=== PATIENT | female | born 1985 | race Caucasian/White ===

== ENCOUNTER 2018-05-12 07:09 | Emergency (ER) | payer OTHER, MEDICAID ==
[~2018-05-12] VITALS: Ht 180.3 cm; Wt 61.2 kg
[~2018-05-12 07:09] MED LIST: AMIT10TA6 PO; DIURETIC; HYDR1CAP2; MORP15TA8 PO; NITR100C3 PO; NORE1TAB40; OXYC15TA21 PO; PENT100C5 PO; PRD20T; SOLI5TAB4 PO; TOPI100T; TRAM50TA2 PO; TRIA1CAP PO
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
[2018-05-12] MEDS ORDERED: TETANUS,DIPTH,PERTUSS P/F (BOOSTRIX) 0.5 ML VIAL IM ONE ×2 (07:30→09:59)
[2018-05-12 07:40] LABS: HEMOGLOBIN 14.4 G/DL (11.5-16.0); MEAN PLATELET VOLUME 10.5 FL (7.4-10.4); RED CELL DISTRIBUTION WIDTH 12.8 % (10.0-14.5); WHITE BLOOD COUNT 11.5 10^3/uL (4.3-11.0)
[2018-05-12 08:00] LABS: ALANINE AMINOTRANSFERASE 150 U/L (0-55); ALBUMIN 4.4 GM/DL (3.2-4.5); ALKALINE PHOSPHATASE 64 U/L (40-136); BILIRUBIN,DIRECT 0.1 MG/DL (0.0-0.3); BILIRUBIN,INDIRECT 0.2 MG/DL; BILIRUBIN,TOTAL 0.3 MG/DL (0.1-1.0); BUN/CREATININE RATIO 11; CALCIUM 9.1 MG/DL (8.5-10.1); CARBON DIOXIDE 17 MMOL/L (21-32); CHLORIDE 110 MMOL/L (98-107); CREATININE SERUM 0.89 MG/DL (0.60-1.30); GFR ESTIMATED > 60; GLUCOSE 86 MG/DL (70-105); SODIUM 141 MMOL/L (135-145); TOTAL PROTEIN 7.2 GM/DL (6.4-8.2)
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
[2018-05-12 09:02] LABS: BILIRUBIN,URINE NEGATIVE (NEGATIVE); CLARITY,URINE CLEAR; COLOR,URINE YELLOW; GLUCOSE, URINE (UA) NEGATIVE (NEGATIVE); KETONES,URINE NEGATIVE (NEGATIVE); LEUKOCYTE ESTERASE ,URINE NEGATIVE (NEGATIVE); NITRITE,URINE NEGATIVE (NEGATIVE); PH,URINE 6 (5-9); PROTEIN,URINE 1+ (NEGATIVE); UROBILINOGEN,URINE NORMAL (NORMAL)
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
[2018-05-12 09:11] LABS: AMPHETAMINE SCREEN, URINE NEGATIVE (NEGATIVE); BARBITURATE SCREEN URINE NEGATIVE (NEGATIVE); BENZODIAZEPINES SCREEN URINE NEGATIVE (NEGATIVE); CANNABINOID SCREEN, URINE NEGATIVE (NEGATIVE); COCAINE SCREEN URINE NEGATIVE (NEGATIVE); METHADONE STAT NEGATIVE (NEGATIVE); METHAMPHETAMINE SCREEN URINE S NEGATIVE (NEGATIVE); OPIATE SCREEN URINE NEGATIVE (NEGATIVE); OXYCODONE STAT NEGATIVE (NEGATIVE); PROPOXYPHENE STAT NEGATIVE (NEGATIVE); TRICYCLIC ANTIDEPRESSANTS SCRE NEGATIVE (NEGATIVE)
[2018-05-12 09:22] LABS: BACTERIA,URINE TRACE /HPF; SQUAMOUS EPITHELIAL CELL,UR 0-2 /HPF
[2018-05-12 09:23] LABS: AMORPHOUS SEDIMENT,UR RARE AMOR URATES /LPF
[2018-05-12] MEDS ORDERED: LIDOCAINE 1% INJ 20 ML 20 ML VIAL INJ ONE (10:00)
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
--- NOTE | 2018-05-12 10:50 | ED Trauma-Vehiclar ---
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 previous study was most likely artifactual in nature. However, there is a small 6 MM area of increased density within the white matter of the right parietal lobe near the vertex of the skull. Even in retrospect this was not present on the previous exam. This finding is most likely due to small parenchymal contusion of the brain. No other acute intracranial abnormality is noted. The ventricles are not abnormally dilated. The bone windows show no sign of a fracture. There does appear to be soft tissue edema over the right frontal bone. IMPRESSION: 1. The questionable extra-axial hemorrhage along the right frontal lobe seen on the prior exam appears to have been artifactual in nature. There is no evidence for hemorrhage in the subdural space. 2. There is a small parenchymal contusion in the right parietal lobe near the vertex of the skull. A short-term (24-hour) followup CT head exam would be recommended for further study. 3. These results were discussed with Dr. Bonds at the time this dictation. CRITICAL FINDING. Dictated by: Dictated on workstation # [id number] Dict: 05/12/18 1015 Trans: 05/12/18 1148 Interpreted by: SIERRA MERLOS MD Electronically signed by: SIERRA MERLOS MD 05/12/18 1148 Diagonstic Imaging: Xray Plain Films/CT/US/NM/MRI: knee Comments Right knee x-ray viewed by me and report reviewed. See report below: NAME: MY [facility] REC#: [id number] PT STATUS: REG ER : 1985 PHYSICIAN: MAULIK BONDS MD ADMIT DATE: 05/12/18/ER Draft Date of Exam:05/12/18 KNEE, RIGHT, 3 VIEWS Right knee at 1105. INDICATION: Knee pain. Three views were obtained. There are no prior studies available for comparison. There is a small calcific density along the lateral edge of the articular surface of the proximal tibia on the AP view. This finding cannot be identified with certainty on the other two projections but could related to a small avulsion fracture. There is also slight irregularity of the trabecula of the lateral tibial plateau and there could be a nondisplaced fracture in this region as well. The lateral view reveals that there may be a small amount of lipohemarthrosis. I would recommend that CT of the knee be performed for further evaluation. No other fracture or acute bony abnormality is appreciated. The knee joint itself is fairly well-maintained. IMPRESSION: There is a question of small avulsion fracture along the lateral aspect of the articular surface of the proximal tibia. There may be a nondisplaced fracture of the lateral tibial plateau as well. CT would be recommended for further evaluation. Dictated on workstation # [id number] Dict: 05/12/18 1114 Trans: 05/12/18 1133 [facility] [id number] Interpreted by: SIERRA MERLOS MD Departure Impression Primary Impression: Spleen laceration Qualified Codes: S36.039A - Unspecified laceration of spleen, initial encounter Additional Impressions: Brain contusion Closed right scapular fracture Qualified Codes: S42.111A - Displaced fracture of body of scapula, right shoulder, initial encounter for closed fracture Neck contusion Qualified Codes: S10.93XA - Contusion of unspecified part of neck, initial encounter Multiple lacerations Distal radius fracture, right Qualified Codes: S52.501A - Unspecified fracture of the lower end of right radius, initial encounter for closed fracture Fracture of right tibial plateau Qualified Codes: S82.141A - Displaced bicondylar fracture of right tibia, initial encounter for closed fracture Foreign body of right index finger Alcohol intoxication Qualified Codes: F10.929 - Alcohol use, unspecified with intoxication, unspecified Disposition: 02 XFER SHT-TRM HOSP Condition: Improved Transfer Time Spoke to Accepting Phy: 10:50 Transfer Progress Notes Patient accepted by Dr. Dow at [facility] ER. Update was provided at 12:28. Transfer Time: 12:33 Method of Transfer: EMS Departure-Patient Inst. Referrals: ANNIE ALVARENGA MD (PCP) Primary Care Physician MAULIK BONDS MD May 12, 2018 10:50
--- NOTE | 2018-05-12 11:24 | NUR ---
1500 ML EMPTIED OUT OF TAVERAS.
--- NOTE | 2018-05-12 11:34 | Diagnostic Imaging Report ---
Right knee at 1105. INDICATION: Knee pain. Three views were obtained. There are no prior studies available for comparison. There is a small calcific density along the lateral edge of the articular surface of the proximal tibia on the AP view. This finding cannot be identified with certainty on the other two projections but could related to a small avulsion fracture. There is also slight irregularity of the trabecula of the lateral tibial plateau and there could be a nondisplaced fracture in this region as well. The lateral view reveals that there may be a small amount of lipohemarthrosis. I would recommend that CT of the knee be performed for further evaluation. No other fracture or acute bony abnormality is appreciated. The knee joint itself is fairly well-maintained. IMPRESSION: There is a question of small avulsion fracture along the lateral aspect of the articular surface of the proximal tibia. There may be a nondisplaced fracture of the lateral tibial plateau as well. CT would be recommended for further evaluation. Dictated by: Dictated on workstation # [id number]
[2018-05-12] MEDS ORDERED: fentaNYL INJECTION 100 MCG/2 ML AMP ONE (12:26)
[2018-05-12] MEDS ORDERED: fentaNYL INJECTION 100 MCG/2 ML AMP IVP ONE (12:30)
[2018-05-12 12:33] VITALS: BP 111/62
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
== END 2018-05-12 12:33 | disposition short-term general hospital (02) ==
LOC: EDUNIT# 07:09 → ER 07:10
DX: S06.2X9A Diffuse traumatic brain injury with loss of consciousness of unspecified duration, initial encounter (principal); S36.039A Unspecified laceration of spleen, initial encounter; S42.111A Displaced fracture of body of scapula, right shoulder, initial encounter for closed fracture; S52.501A Unspecified fracture of the lower end of right radius, initial encounter for closed fracture; S82.141A Displaced bicondylar fracture of right tibia, initial encounter for closed fracture; S61.220A Laceration with foreign body of right index finger without damage to nail, initial encounter; S01.511A Laceration without foreign body of lip, initial encounter; S10.93XA Contusion of unspecified part of neck, initial encounter; G43.909 Migraine, unspecified, not intractable, without status migrainosus; R40.2142 Coma scale, eyes open, spontaneous, at arrival to emergency department; R40.2242 Coma scale, best verbal response, confused conversation, at arrival to emergency department; R40.2362 Coma scale, best motor response, obeys commands, at arrival to emergency department; F17.210 Nicotine dependence, cigarettes, uncomplicated; Z90.710 Acquired absence of both cervix and uterus; Z23 Encounter for immunization; Z87.448 Personal history of other diseases of urinary system; Z88.8 Allergy status to other drugs, medicaments and biological substances; V49.40XA Driver injured in collision with unspecified motor vehicles in traffic accident, initial encounter
CPT/HCPCS: 12011; 36415; 51702; 70450; 70486; 70490; 71045; 71260; 72125; 72170; 73130; 73562; 74177; 80048; 80076; 80306; 80320; 81000; 84703; 85027; 86850; 86900; 86901; 86920; 90715; 93041; 99291

== ENCOUNTER 2019-02-03 21:29 | Emergency (ER) | payer OTHER, MEDICAID ==
[2019-02-03] MEDS ORDERED: IBUPROFEN 800 MG (MOTRIN) TAB PO ONE (22:00)
[2019-02-03] MEDS ORDERED: ACETAMINOPHEN 325 MG TABLET PO ONE (22:00)
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
[2019-02-03 22:30] VITALS: BP 129/70
== END 2019-02-03 22:30 ==
LOC: EDUNIT# 21:29 → ER FS 21:29
DX: F10.129 Alcohol abuse with intoxication, unspecified (principal); M25.572 Pain in left ankle and joints of left foot; G43.909 Migraine, unspecified, not intractable, without status migrainosus; Z88.5 Allergy status to narcotic agent; Z88.4 Allergy status to anesthetic agent; Z90.710 Acquired absence of both cervix and uterus
CPT/HCPCS: 99283

== ENCOUNTER → 2019-02-12 | Outpatient (CLI) | payer OTHER, MEDICAID ==
[~2019-02-12] MED LIST changes: +DOXY100C PO; +OXYC-471 PO; +SULF1TAB35 PO
== END | disposition home or self-care (01) ==
LOC: PREOP 11:29
PROVIDERS: ATTEND Orthopaedic Surgery
DX: Z01.818 Encounter for other preprocedural examination (principal)

== ENCOUNTER 2019-02-13 08:34 | Day surgery (SDC) | payer MEDICARE, MEDICAID ==
--- NOTE | 2019-02-12 21:10 | HISTORY AND PHYSICAL ---
DATE OF SERVICE: This will be for outpatient surgery on 02/13/2019 for left ankle irrigation and debridement. HISTORY: The patient is a 33-year-old female who underwent open reduction and internal fixation for left lateral malleolus fracture on 01/15/2019. She was doing well until approximately 02/10/2019 and she began to experience erythema and warmth. She denies any antecedent illnesses. She was started on oral antibiotics, but did not see significant improvement; therefore, presents for planned irrigation and debridement. REVIEW OF SYSTEMS: No chest pain, no shortness of breath, no dysuria. PAST MEDICAL HISTORY: Kidney disease, anxiety, depression. PAST SURGICAL HISTORY: Hysterectomy, shoulder InterStim implant, right knee arthroscopy with ACL reconstruction. FAMILY HISTORY: Noncontributory. PRIMARY CARE PROVIDER: . MEDICATIONS: Clonazepam, folic acid, gabapentin, mirtazapine, Minipress, Trintellix. ALLERGIES: DEMEROL. SOCIAL HISTORY: The patient smokes quarter pack a day. Drinks alcohol occasionally. PHYSICAL EXAMINATION: GENERAL: The patient is well developed, well nourished, in no acute distress. HEENT: Normocephalic, atraumatic. Pupils are equal, round, reactive to light. Oropharynx is clear. NECK: Supple, no lymphadenopathy. LUNGS: Clear to auscultation bilaterally. HEART: Regular rate and rhythm. ABDOMEN: Soft, nontender, nondistended. EXTREMITIES: The left ankle demonstrates erythema about the incision. There is no discharge. Her incision is well healed. There is no effusion noted in the ankle. There is warmth noted. IMPRESSION: Left ankle postoperative infection status post internal fixation of lateral malleolus. PLAN: Irrigation and debridement of left lateral malleolus. The risks, benefits, options, ramifications and recovery were discussed at length with the patient. She understands and wishes to proceed. Job ID: [id number] DocumentID: [id number] Dictated Date: 02/11/2019 15:15:31 Portable Sawmill Operator Date: 02/11/2019 17:19:42 Dictated By: MANUEL CHRISTIANSON MD
[~2019-02-13] VITALS: Ht 180.3 cm; Wt 65.3 kg
[2019-02-13] VITALS (11 sets, daily range): BP systolic 111–131; BP diastolic 70–102
[~2019-02-13 08:34] MED LIST changes: -DOXY100C PO; -OXYC-471 PO; -SULF1TAB35 PO; +oxyCODONE/APAP 5/325MG (PERCOCET 5) TABLET PO PRN
--- NOTE | 2019-02-13 08:50 | Progress Note-Pre Operative ---
Pre-Operative Progress Note H&P Reviewed The H&P was reviewed, patient examined and no changes noted. Date Seen by Provider: Feb 13, 2019 Time Seen by Provider: 08:48 Date H&P Reviewed: Feb 13, 2019 Time H&P Reviewed: 08:48 Pre-Operative Diagnosis: infected left ankle hardware MANUEL CHRISTIANSON MD Feb 13, 2019 08:50 POS
--- NOTE | 2019-02-13 08:51 | Progress Note-Post Operative ---
Post-Operative Progess Note Surgeon (s)/Respiratory Therapy Manager (s) Surgeon MANUEL CHRISTIANSON MD Respiratory Therapy Manager: Lasha Gentile Pre-Operative Diagnosis infected left ankle hardware Post-Operative Diagnosis infected left ankle hardware Procedure & Operative Findings Date of Procedure 02/13/19 Procedure Performed/Findings irrigation and debridement and hardware removal left ankle Anesthesia Type GETA Estimated Blood Loss Estimated blood loss (mL): minimal Specimens/Packing Specimens Removed cultures sent Packing: none MANUEL CHRISTIANSON MD Feb 13, 2019 08:51 POS
[2019-02-13] MEDS ORDERED: LACTATED RINGERS 1,000 ML IV PRN (08:54)
[2019-02-13] MEDS ORDERED: fentaNYL INJECTION 100 MCG/2 ML AMP IV ONE (09:00)
[2019-02-13] MEDS ORDERED: fentaNYL INJECTION 100 MCG/2 ML AMP ONE ×2 (09:03→09:14)
[2019-02-13] MEDS ORDERED: LIDOCAINE PF 2% 5 ML (XYLOCAINE) VIAL ONE (09:13)
[2019-02-13] MEDS ORDERED: proPOfol 200 MG/20 ML (DIPRIVAN) VIAL IV ONE (09:13)
[2019-02-13] MEDS ORDERED: DEXAMETHASONE 10 MG/ML (DECADRON) 1 ML VIAL ONE (09:13)
[2019-02-13] MEDS ORDERED: ONDANSETRON 4 MG/2 ML (SDV) Z0FRAN ONE (09:13)
[2019-02-13] MEDS ORDERED: MIDAZOLAM 2 MG/2 ML (VERSED) VIAL ONE (09:14)
[2019-02-13] MEDS ORDERED: BUPIVACAINE 0.25% 30 ML (SENSORCAINE) VIAL ONE (09:15)
[2019-02-13] MEDS ORDERED: SEVOFLURANE (ULTANE) 15 ML INHAL SOLN ONE ×3 (09:17→10:37)
[2019-02-13] MEDS ORDERED: fentaNYL INJECTION 100 MCG/2 ML AMP IVP ONE (09:30)
[2019-02-13] MEDS ORDERED: ONDANSETRON 4 MG/2 ML (SDV) Z0FRAN IVP PRN (09:30)
[2019-02-13] MEDS ORDERED: morphine INJ 10 MG/ML 1ML (SYR OR VIAL) IVP ONE (09:30)
--- NOTE | 2019-02-13 10:50 | Diagnostic Imaging Report ---
EXAMINATION: Fluoroscopy at 0959 hours. INDICATION: Hardware removal. TECHNIQUE: Fluoroscopic assistance was provided for Dr. Garcia during his hardware removal procedure. 4.4 seconds of fluoroscopy time was utilized. Three AP spot films of the ankle were obtained. COMPARISON: There are no prior studies available for comparison. FINDINGS: The spot films show a small calcific density along the inferior margin of the medial malleolus. There is no fracture or acute bony abnormality identified. There is no orthopedic hardware evident. There is soft tissue edema about the ankle joint. IMPRESSION: Fluoroscopic assistance was provided for Dr. Garcia. Dictated by: Dictated on workstation # [id number]
[2019-02-13] MEDS ORDERED: OXYC-471 PO (12:11)
[2019-02-13] MEDS ORDERED: DOXY100C PO (12:11)
[2019-02-13] MEDS ORDERED: SULF1TAB35 PO (12:11)
--- NOTE | 2019-02-13 12:52 | Anesthesia-General Post-Op ---
General Patient Condition Mental Status/LOC: Same as Preop Cardiovascular: Satisfactory Nausea/Vomiting: Absent Respiratory: Satisfactory Pain: Controlled Complications: Absent Post Op Complications Complications None Follow Up Care/Instructions Patient Instructions None needed. Anesthesia/Patient Condition Patient Condition Patient is doing well, no complaints, stable vital signs, no apparent adverse anesthesia problems. No complications reported per nursing. LISA PIERRE CRNA Feb 13, 2019 12:52 POS
--- NOTE | 2019-02-13 15:35 | OPERATIVE REPORT ---
DATE OF SERVICE: 02/13/2019 PREOPERATIVE DIAGNOSIS: Infected left ankle hardware. POSTOPERATIVE DIAGNOSIS: Infected left ankle hardware. PROCEDURES: Irrigation and debridement and hardware removal, left ankle. SURGEON: Marvin Christianson MD PRODUCT SAFETY ASSOCIATE: Lasha Gentile, who assisted throughout the procedure and closed the incision. ANESTHESIA: General endotracheal by Lasha Diop CRNA. TOURNIQUET TIME: Approximately 30 minutes at 300 mmHg. ESTIMATED BLOOD LOSS: Minimal. DRAINS: None. COMPLICATIONS: None. POSTOPERATIVE PLAN: Boot ambulation for 4 weeks. The patient was transferred to the recovery room awake and stable condition. STATEMENT OF MEDICAL NECESSITY: The patient is a 33-year-old female, who approximately five weeks ago underwent internal fixation of her lateral malleolus fracture. She presented to the clinic early this week with erythema, which did not improve with oral antibiotics. Therefore, it was recommended the patient undergo operative irrigation and debridement. DESCRIPTION OF PROCEDURE: After risks and benefits of the procedure were discussed and questions were answered, an informed consent was signed and placed on the chart, the operative site was confirmed in the preoperative holding area initialed by the surgeon, the patient was then transferred to the operating room and after adequate levels of general endotracheal anesthetic were obtained, a timeout was called, confirming the operative site. Left lower extremity was prepped and draped in the usual sterile fashion. With the leg elevated, tourniquet was inflated to 300 mmHg. The previous incision was utilized. The underlying soft tissues were carefully dissected. Cultures were obtained and sent; two sets were obtained, one from the deep distal tissues and one from the more superficial tissues. There was some purulence noted inferiorly. This did appear to extend into the peroneal tendons with the peroneal tendons themselves were intact with no evidence of necrotic tissue. There was marked fibrotic tissue over the plate, which was resected sharply. No necrotic tissue was noted. The fracture was found to be well healed both under direct visualization and under fluoroscopic visualization. The plate and screws were removed without difficulty. Under fluoroscopic visualization, the ankle was stressed and the fracture was well healed and stable. After sharply dissecting the fibrotic tissue, the wound was irrigated with 6 liters of pulse lavage and 3-0 Vicryl was then used to reapproximate the subcutaneous tissue and the skin was closed with 3-0 nylon in a vertical mattress interrupted fashion. Incision was infiltrated with plain Marcaine. A soft dressing and boot were applied. The tourniquet was deflated after wound closure and the patient was transferred to the recovery room awake and in stable condition. Job ID: [id number] DocumentID: [id number] Dictated Date: 02/13/2019 10:31:08 Design Printer Balloon Date: 02/13/2019 15:35:35 Dictated By: MARVIN CHRISTIANSON MD
== END 2019-02-13 12:40 | disposition home or self-care (01) ==
LOC: SDC 08:34
PROVIDERS: ATTEND Orthopaedic Surgery
DX: T84.098A Other mechanical complication of other internal joint prosthesis, initial encounter (principal); F32.9 Major depressive disorder, single episode, unspecified; F41.9 Anxiety disorder, unspecified; F17.210 Nicotine dependence, cigarettes, uncomplicated; Z90.710 Acquired absence of both cervix and uterus; Z79.899 Other long term (current) drug therapy
CPT/HCPCS: 87070; 87075; 87077; 87081; 87186; 87205

== ENCOUNTER → 2019-03-06 | Outpatient (CLI) | payer MEDICARE, MEDICAID ==
[~2019-03-06] MED LIST changes: +DOXY100C PO; +OXYC-471 PO; +SULF1TAB35 PO; -oxyCODONE/APAP 5/325MG (PERCOCET 5) TABLET PO PRN
== END ==
LOC: WOUNDCARE 13:47
PROVIDERS: ATTEND Surgery
DX: I96 Gangrene, not elsewhere classified (principal); S91.002A Unspecified open wound, left ankle, initial encounter; L97.322 Non-pressure chronic ulcer of left ankle with fat layer exposed; L03.116 Cellulitis of left lower limb
CPT/HCPCS: 11042

== ENCOUNTER → 2019-03-06 | Outpatient (CLI) | payer MEDICARE, MEDICAID ==
[2019-03-06 15:58] LABS: BASOPHILS % (AUTO) 1 % (0-10); EOSINOPHILS # (AUTO) 0.3 10^3/uL (0.0-0.3); EOSINOPHILS % (AUTO) 5 % (0-10); HEMATOCRIT 38 % (35-52); HEMOGLOBIN 12.5 G/DL (11.5-16.0); LYMPHOCYTES # (AUTO) 2.5 X 10^3 (1.0-4.0); LYMPHOCYTES % (AUTO) 36 % (12-44); MEAN CORPUSCULAR HEMOGLOBIN 32 PG (25-34); MEAN CORPUSCULAR HGB CONC 33 G/DL (32-36); MEAN CORPUSCULAR VOLUME 98 FL (80-99); MEAN PLATELET VOLUME 9.8 FL (7.4-10.4); MONOCYTES # (AUTO) 0.5 X 10^3 (0.0-1.0); MONOCYTES % (AUTO) 8 % (0-12); NEUTROPHILS # (AUTO) 3.5 X 10^3 (1.8-7.8); NEUTROPHILS % (AUTO) 51 % (42-75); PLATELET COUNT 326 10^3/uL (130-400); RED CELL DISTRIBUTION WIDTH 12.9 % (10.0-14.5); WHITE BLOOD COUNT 6.9 10^3/uL (4.3-11.0)
[2019-03-06 16:36] LABS: ALANINE AMINOTRANSFERASE 18 U/L (0-55); ALBUMIN 4.1 GM/DL (3.2-4.5); ALKALINE PHOSPHATASE 95 U/L (40-136); BILIRUBIN,TOTAL 0.3 MG/DL (0.1-1.0); BUN/CREATININE RATIO 13; CALCIUM 9.6 MG/DL (8.5-10.1); CARBON DIOXIDE 26 MMOL/L (21-32); CHLORIDE 105 MMOL/L (98-107); CREATININE SERUM 0.86 MG/DL (0.60-1.30); GFR ESTIMATED > 60; GLUCOSE 84 MG/DL (70-105); POTASSIUM 4.5 MMOL/L (3.6-5.0); SODIUM 139 MMOL/L (135-145); TOTAL PROTEIN 7.7 GM/DL (6.4-8.2)
== END ==
LOC: LAB 15:35
PROVIDERS: ATTEND Surgery
DX: S91.002A Unspecified open wound, left ankle, initial encounter (principal); L97.322 Non-pressure chronic ulcer of left ankle with fat layer exposed; L03.116 Cellulitis of left lower limb
CPT/HCPCS: 36415; 80053; 85025

== ENCOUNTER → 2019-03-15 | Outpatient (CLI) | payer MEDICARE, MEDICAID | LOC: WOUNDCARE 08:14 | PROVIDERS: ATTEND Surgery | DX: L97.322 Non-pressure chronic ulcer of left ankle with fat layer exposed (principal); S91.002A Unspecified open wound, left ankle, initial encounter; L03.116 Cellulitis of left lower limb | CPT/HCPCS: 11042 ==

== ENCOUNTER → 2019-03-22 | Outpatient (CLI) | payer MEDICARE, MEDICAID | LOC: WOUNDCARE 08:19 | PROVIDERS: ATTEND Surgery | DX: S91.002A Unspecified open wound, left ankle, initial encounter (principal); L97.322 Non-pressure chronic ulcer of left ankle with fat layer exposed; L03.114 Cellulitis of left upper limb; I96 Gangrene, not elsewhere classified | CPT/HCPCS: 11042 ==

== ENCOUNTER → 2019-03-27 | Outpatient (CLI) | payer MEDICARE, MEDICAID | LOC: WOUNDCARE 10:57 | PROVIDERS: ATTEND Orthopaedic Surgery Hand Surgery | DX: S91.002A Unspecified open wound, left ankle, initial encounter (principal); L97.322 Non-pressure chronic ulcer of left ankle with fat layer exposed; L03.116 Cellulitis of left lower limb; I96 Gangrene, not elsewhere classified | CPT/HCPCS: 11042 ==

== ENCOUNTER 2019-04-03 02:07 | Emergency (ER) | payer MEDICARE, MEDICAID ==
[~2019-04-03] VITALS: Ht 180 cm; Wt 63.6 kg
[~2019-04-03 02:07] MED LIST changes: -DOXY100T2 PO
[2019-04-03 02:44] LABS: BASOPHILS % (AUTO) 0 % (0-10); EOSINOPHILS # (AUTO) 0.4 10^3/uL (0.0-0.3); EOSINOPHILS % (AUTO) 3 % (0-10); HEMATOCRIT 39 % (35-52); LYMPHOCYTES # (AUTO) 1.6 X 10^3 (1.0-4.0); LYMPHOCYTES % (AUTO) 15 % (12-44); MEAN CORPUSCULAR HEMOGLOBIN 32 PG (25-34); MEAN CORPUSCULAR HGB CONC 33 G/DL (32-36); MEAN CORPUSCULAR VOLUME 97 FL (80-99); MEAN PLATELET VOLUME 10.1 FL (7.4-10.4); MONOCYTES # (AUTO) 0.8 X 10^3 (0.0-1.0); MONOCYTES % (AUTO) 7 % (0-12); NEUTROPHILS # (AUTO) 8.4 X 10^3 (1.8-7.8); NEUTROPHILS % (AUTO) 75 % (42-75); PLATELET COUNT 293 10^3/uL (130-400); RED CELL DISTRIBUTION WIDTH 13.8 % (10.0-14.5); WHITE BLOOD COUNT 11.2 10^3/uL (4.3-11.0)
[2019-04-03 02:55] LABS: INR 0.9 (0.8-1.4); PROTHROMBIN TIME PATIENT 12.5 SEC (12.2-14.7)
[2019-04-03 03:04] LABS: ALBUMIN 4.2 GM/DL (3.2-4.5); BILIRUBIN,TOTAL 0.2 MG/DL (0.1-1.0); CALCIUM 9.3 MG/DL (8.5-10.1); CREATININE SERUM 1.04 MG/DL (0.60-1.30); POTASSIUM 3.8 MMOL/L (3.6-5.0); TOTAL PROTEIN 7.6 GM/DL (6.4-8.2)
[2019-04-03] MEDS ORDERED: cefTRIAXone FOR IV USE 1,000 MG in WATER (STERILE) FOR INJECTION 10 ML IV ONE (03:15)
[2019-04-03] MEDS ORDERED: KETOROLAC 30 MG/ML VIAL IVP ONE (03:15)
[2019-04-03] MEDS ORDERED: DOXYCYCLINE 100 MG (VIBRAMYCIN) TABLET PO ONE (03:30)
--- NOTE | 2019-04-03 03:38 | ED General ---
General Chief Complaint: Skin/Wound Problems Stated Complaint: LEFT FOOT PAIN Nursing Triage Note: left ankle swelling/redness/pain Nursing Sepsis Screen: No Definite Risk Source of Information: Patient Exam Limitations: No Limitations History of Present Illness Date Seen by Provider: Apr 03, 2019 Time Seen by Provider: 02:15 Initial Comments This 33-year-old woman presents to the emergency room with complaints of pain, swelling, and erythema about the left ankle. She has a history of fracture in that ankle that was repaired and then developed postoperative infection. Patient has an appointment with the wound care clinic later this morning. Dr. Garcia is her orthopedic surgeon. Patient denies any trauma associated with her symptoms. Allergies and Home Medications Allergies Coded Allergies: benzocaine (Unverified Allergy, Unknown, 02/03/19) meperidine (Verified Allergy, Unknown, Pt has received Fentanyl w/o issue, 02/13/19) Home Medications Doxycycline Hyclate 100 Mg Tablet, 100 MG PO BID Prescribed by: MAULIK MANZANARES on 04/03/19 0339 Oxycodone HCl/Acetaminophen 1 Each Tablet, 1 EACH PO Q4H PRN for PAIN-SEVERE Prescribed by: JAVIER STACK on 02/13/19 1211 Sulfamethoxazole/Trimethoprim 1 Each Tablet, 1 EACH PO BID Prescribed by: MAULIK MANZANARES on 04/03/19 0339 Patient Home Medication List Home Medication List Reviewed: Yes Review of Systems Review of Systems Constitutional: no symptoms reported EENTM: no symptoms reported Respiratory: no symptoms reported Cardiovascular: no symptoms reported Gastrointestinal: no symptoms reported Genitourinary: no symptoms reported : No Musculoskeletal: see HPI Skin: see HPI Psychiatric/Neurological: No Symptoms Reported Hematologic/Lymphatic: No Symptoms Reported Past [id number] Hx Past Med/Social Hx: Reviewed Nursing Past Med/Soc Hx Patient Social History Alcohol Use: Rarely Uses Number of Drinks Today: AA Alcohol Beverage of Choice: Beer Recreational Drug Use: No Smoking Status: Current Everyday Smoker Type Used: Cigarettes 2nd Hand Smoke Exposure: Yes Recent Foreign Travel: No Contact w/Someone Who Travel: No Recent Infectious Disease Expo: No Recent Hopitalizations: Yes Physical Abuse: No Sexual Abuse: No Mistreated: No Fear: No Immunizations Up To Date Tetanus Booster (TDap): Less than 5yrs Date of Pneumonia Vaccine: Dec 18, 2012 Date of Influenza Vaccine: Dec 18, 2012 Seasonal Allergies Seasonal Allergies: No Past Medical History Surgeries: Yes (LEFT ANKLE SURGERY; RIGHT KNEE ACL SURGERY) Hysterectomy, Orthopedic Respiratory: No Currently Using CPAP: No Currently Using BIPAP: No Cardiac: No Neurological: Yes Headaches /Migraines : No Reproductive Disorders: Yes (SEVERE CERVICAL DYSPLASIA, HYSTERECTOMY) 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 oz. 61.564691fo; 19.00 BMI Method:Stated General Appearance: No Apparent Distress, WD/WN HEENT: PERRL/EOMI, Normal ENT Inspection Neck: Normal Inspection Respiratory: Lungs Clear, Normal Breath Sounds, No Accessory Muscle Use Cardiovascular: No Edema, No Murmur, Tachycardia Extremity: Other (there is swelling, erythema, heat, and tenderness over the lateral malleolus of the left ankle. Pedal pulses strong. Distal foot is normal. There is scar tissue but no open wound or drainage over the surgical site on the lateral malleolus.) Neurologic/Psychiatric: Alert, Oriented x3, No Motor/Sensory Deficits, Normal Mood/Affect, role player II-XII Norm as Tested Skin: warm/dry (erythema over the left lateral malleolus) Focused Exam Lactate Level 04/03/19 02:35: Lactic Acid Level 1.12 Lactic Acid Level Laboratory Tests Test 04/03/19 02:35 Lactic Acid Level 1.12 MMOL/L (0.50-2.00) Procedures/Interventions Suture Size: 6-0 Progress/Results/Core Measures Suspected Sepsis Recent Fever Within 48 Hours: No Infection Criteria Present: Suspected New Infection New/Unexplained Altered Menta: No Sepsis Screen: No Definite Risk SIRS Temperature: Pulse: 124 Respiratory Rate: 18 Laboratory Tests 04/03/19 02:35: White Blood Count 11.2H Blood Pressure 129 /83 Mean: 98 04/03/19 02:35: Lactic Acid Level 1.12 Laboratory Tests 04/03/19 02:35: Creatinine 1.04, INR Comment 0.9, Platelet Count 293, Total Bilirubin 0.2 Results/Orders Lab Results Laboratory Tests Test 04/03/19 02:35 Range/Units White Blood Count 11.2 H 4.3-11.0 10^3/uL Red Blood Count 4.06 L 4.35-5.85 10^6/uL Hemoglobin 13.0 11.5-16.0 G/DL Hematocrit 39 35-52 % Mean Corpuscular Volume 97 80-99 FL Mean Corpuscular Hemoglobin 32 25-34 PG Mean Corpuscular Hemoglobin Concent 33 32-36 G/DL Red Cell Distribution Width 13.8 10.0-14.5 % Platelet Count 293 130-400 10^3/uL Mean Platelet Volume 10.1 7.4-10.4 FL Neutrophils (%) (Auto) 75 42-75 % Lymphocytes (%) (Auto) 15 12-44 % Monocytes (%) (Auto) 7 0-12 % Eosinophils (%) (Auto) 3 0-10 % Basophils (%) (Auto) 0 0-10 % Neutrophils # (Auto) 8.4 H 1.8-7.8 X 10^3 Lymphocytes # (Auto) 1.6 1.0-4.0 X 10^3 Monocytes # (Auto) 0.8 0.0-1.0 X 10^3 Eosinophils # (Auto) 0.4 H 0.0-0.3 10^3/uL Basophils # (Auto) 0.0 0.0-0.1 10^3/uL Prothrombin Time 12.5 12.2-14.7 SEC INR Comment 0.9 0.8-1.4 Activated Partial Thromboplast Time 28 24-35 SEC Sodium Level 143 135-145 MMOL/L Potassium Level 3.8 3.6-5.0 MMOL/L Chloride Level 111 H 98-107 MMOL/L Carbon Dioxide Level 20 L 21-32 MMOL/L Anion Gap 12 5-14 MMOL/L Blood Urea Nitrogen 11 7-18 MG/DL Creatinine 1.04 0.60-1.30 MG/DL Estimat Glomerular Filtration Rate 60 BUN/Creatinine Ratio 11 Glucose Level 86 70-105 MG/DL Lactic Acid Level 1.12 0.50-2.00 MMOL/L Calcium Level 9.3 8.5-10.1 MG/DL Corrected Calcium 9.1 8.5-10.1 MG/DL Total Bilirubin 0.2 0.1-1.0 MG/DL Aspartate Amino Transf (AST/SGOT) 15 5-34 U/L Alanine Aminotransferase (ALT/SGPT) 18 0-55 U/L Alkaline Phosphatase 84 40-136 U/L C-Reactive Protein High Sensitivity 0.50 0.00-0.50 MG/DL Total Protein 7.6 6.4-8.2 GM/DL Albumin 4.2 3.2-4.5 GM/DL My Orders Orders - MAULIK ZHONG MD Cbc With Automated Diff (04/03/19 02:25) Comprehensive Metabolic Panel (04/03/19 02:25) Blood Culture (04/03/19 02:25) Protime With Inr (04/03/19 02:25) Partial Thromboplastin Time (04/03/19 02:25) Ed Iv/Invasive Line Start (04/03/19 02:25) Ed Iv/Invasive Line Start (04/03/19 02:25) Vital Signs Adult Sepsis Patie Q15M (04/03/19 02:25) O2 (04/03/19 02:25) Remove Rings In Anticipation O (04/03/19 02:25) Lactic Acid Analyzer (04/03/19 02:25) Ankle, Left, 3 Views (04/03/19 02:25) Hs C Reactive Protein (04/03/19 03:05) Ceftriaxone For Iv Use (Rocephin For I (04/03/19 03:15) Ketorolac Injection (Toradol Injection) (04/03/19 03:15) Doxycycline Hyclate Tablet (Vibramycin T (04/03/19 03:30) Medications Given in ED Current Medications Medications Dose Ordered Sig/Justo Route Start Time Stop Time Status Last Admin Dose Admin Ceftriaxone Sodium 1000 mg/ Sterile Water 10 ml @ 200 mls/hr ONCE ONCE IV 04/03/19 03:15 04/03/19 03:17 DC 04/03/19 03:18 200 MLS/HR Doxycycline Hyclate 100 mg ONCE ONCE PO 04/03/19 03:30 04/03/19 03:31 DC 04/03/19 03:41 100 MG Ketorolac Tromethamine 30 mg ONCE ONCE IVP 04/03/19 03:15 04/03/19 03:16 DC 04/03/19 03:18 30 MG Vital Signs/I&O 04/03/19 04/03/19 04/03/19 02:16 03:18 03:43 Temp 36.6 36.6 36.7 Pulse 124 95 Resp 18 18 B/P (MAP) 129/83 (98) 127/86 (98) Pulse Ox 98 99 O2 Delivery Room Air Room Air Capillary Refill : Less Than 3 Seconds Blood Pressure Mean: 98 Progress Note : Progress Note Patient was notably tachycardic. Septic workup was therefore pursued. Labs were unremarkable. X-ray of the ankle showed significant bony degeneration or incomplete healing. No prior x-rays available for comparison. No acute fracture was identified. Patient's pain was treated with Toradol. Empiric antibody therapy was started with Rocephin. Further treatment is being provided with prescriptions for Bactrim and doxycycline. The first dose of doxycycline was administered in the ER. Diagnostic Imaging Diagonstic Imaging: Xray Plain Films/CT/US/NM/MRI: ankle Comments X-ray of the ankle showed significant bony degeneration or incomplete healing. No prior x-rays available for comparison. No acute fracture was identified. Report not yet available. Departure Impression Primary Impression: Cellulitis Qualified Codes: L03.116 - Cellulitis of left lower limb Disposition: HOME, SELF-CARE Condition: Improved Departure-Patient Inst. Decision time for Depature: 03:36 Referrals: ANNIE ALVARENGA MD (PCP/Family) Primary Care Physician Patient Instructions: Cellulitis (Skin Infection), Adult (DC) Add. Discharge Instructions: Start your antibiotics as soon as possible. Keep your wound care appointment this morning and also follow up with Dr. Garcia as soon as possible. For pain you may take ibuprofen up to 600 mg every 6 hours. You may additionall y take up to 2 of your oxycodone every 4 hours as needed. Elevation on a soft surface should also help. Monitor progression of the affected area with photography. Return to the emergency room if you have escalating symptoms including rapidly spreading redness, uncontrolled pain, or fevers over 100. All discharge instructions reviewed with patient and/or family. Voiced underst anding. Scripts Sulfamethoxazole/Trimethoprim (Bactrim Ds Tablet) 1 Each Tablet 1 EACH PO BID, #20 TAB Prov: MAULIK ZHONG MD 04/03/19 Doxycycline Hyclate (Doxycycline Hyclate) 100 Mg Tablet 100 MG PO BID, #20 TAB 0 Refills Prov: MAULIK ZHONG MD 04/03/19 Copy Copies To 1: MANUEL GARCIA MD, JOSHUA T MD Apr 03, 2019 03:38
[2019-04-03] MEDS ORDERED: SULF1TAB35 PO (03:39)
[2019-04-03] MEDS ORDERED: DOXY100T2 PO (03:39)
[2019-04-03 03:43] VITALS: BP 127/86
--- NOTE | 2019-04-03 08:17 | Diagnostic Imaging Report ---
INDICATION: Left ankle pain, post surgery AP, oblique, and lateral views of the left ankle are obtained. There appears to be a subacute fracture of the distal fibula with some callus formation. There is some irregular lucency at the fracture site, underlying infection is not excluded. The distal tibia appears intact. There is a accessory ossicle adjacent to the medial malleolus. The talus appears intact. IMPRESSION: Subacute oblique fracture of distal fibula with some callus formation. Irregular lucency at the fracture site is seen, underlying osteomyelitis is not excluded. There is soft tissue swelling. Correlate with clinical findings. Dictated by: Dictated on workstation # [id number]
== END 2019-04-03 03:46 | disposition home or self-care (01) ==
LOC: EDUNIT# 02:07 → ER 02:09
DX: L03.116 Cellulitis of left lower limb (principal); G43.909 Migraine, unspecified, not intractable, without status migrainosus; F17.210 Nicotine dependence, cigarettes, uncomplicated; Z87.81 Personal history of (healed) traumatic fracture; Z88.8 Allergy status to other drugs, medicaments and biological substances; Z88.5 Allergy status to narcotic agent; Z90.710 Acquired absence of both cervix and uterus
CPT/HCPCS: 36415; 73610; 80053; 83605; 85025; 85610; 85730; 86141; 87040; 96374; 96375

== ENCOUNTER → 2019-04-03 | Outpatient (CLI) | payer MEDICARE, MEDICAID ==
[~2019-04-03] MED LIST changes: +DOXY100T2 PO
== END ==
LOC: WOUNDCARE 09:01
PROVIDERS: ATTEND Orthopaedic Surgery Hand Surgery
DX: S91.002A Unspecified open wound, left ankle, initial encounter (principal); L97.322 Non-pressure chronic ulcer of left ankle with fat layer exposed; M86.172 Other acute osteomyelitis, left ankle and foot
CPT/HCPCS: 11042; 87070; 87077; 87205

== ENCOUNTER → 2019-05-01 | Outpatient (CLI) | payer MEDICARE, MEDICAID ==
[~2019-05-01] MED LIST changes: +DOXY100T2 PO
[2019-05-01 10:13] LABS: BASOPHILS % (AUTO) 0 % (0-10); EOSINOPHILS % (AUTO) 5 % (0-10); HEMATOCRIT 41 % (35-52); HEMOGLOBIN 14.1 G/DL (11.5-16.0); LYMPHOCYTES % (AUTO) 23 % (12-44); MEAN CORPUSCULAR HEMOGLOBIN 32 PG (25-34); MEAN CORPUSCULAR HGB CONC 34 G/DL (32-36); MEAN CORPUSCULAR VOLUME 95 FL (80-99); MONOCYTES % (AUTO) 4 % (0-12); NEUTROPHILS % (AUTO) 67 % (42-75); PLATELET COUNT 353 10^3/uL (130-400); RED CELL DISTRIBUTION WIDTH 13.9 % (10.0-14.5); WHITE BLOOD COUNT 13.8 10^3/uL (4.3-11.0)
[2019-05-01 10:14] LABS: BASOPHILS # (AUTO) 0.1 10^3/uL (0.0-0.1); EOSINOPHILS # (AUTO) 0.8 10^3/uL (0.0-0.3); LYMPHOCYTES # (AUTO) 3.2 X 10^3 (1.0-4.0); MONOCYTES # (AUTO) 0.6 X 10^3 (0.0-1.0); NEUTROPHILS # (AUTO) 9.2 X 10^3 (1.8-7.8)
[2019-05-01 10:28] LABS: CARBON DIOXIDE 23 MMOL/L (21-32); CHLORIDE 99 MMOL/L (98-107); POTASSIUM 5.1 MMOL/L (3.6-5.0); SODIUM 135 MMOL/L (135-145)
[2019-05-01 10:29] LABS: ALANINE AMINOTRANSFERASE 26 U/L (0-55); ALBUMIN 4.2 GM/DL (3.2-4.5); ALKALINE PHOSPHATASE 91 U/L (40-136); BILIRUBIN,TOTAL 0.2 MG/DL (0.1-1.0); BUN/CREATININE RATIO 17; CALCIUM 9.9 MG/DL (8.5-10.1); CREATININE SERUM 0.81 MG/DL (0.60-1.30); GFR ESTIMATED > 60; GLUCOSE 94 MG/DL (70-105)
== END ==
LOC: LAB FS 09:54
PROVIDERS: ATTEND Orthopaedic Surgery
DX: T81.31XA Disruption of external operation (surgical) wound, not elsewhere classified, initial encounter (principal); T84.69XA Infection and inflammatory reaction due to internal fixation device of other site, initial encounter; M86.462 Chronic osteomyelitis with draining sinus, left tibia and fibula
CPT/HCPCS: 36415; 80053; 85025

== ENCOUNTER → 2019-05-08 | Outpatient (CLI) | payer MEDICARE, MEDICAID ==
[2019-05-08 11:34] LABS: WHITE BLOOD COUNT 8.7 10^3/uL (4.3-11.0)
[2019-05-08 11:35] LABS: BASOPHILS # (AUTO) 0.1 10^3/uL (0.0-0.1); BASOPHILS % (AUTO) 1 % (0-10); EOSINOPHILS # (AUTO) 0.3 10^3/uL (0.0-0.3); EOSINOPHILS % (AUTO) 3 % (0-10); HEMATOCRIT 41 % (35-52); HEMOGLOBIN 13.6 G/DL (11.5-16.0); LYMPHOCYTES % (AUTO) 34 % (12-44); MEAN CORPUSCULAR HEMOGLOBIN 32 PG (25-34); MEAN CORPUSCULAR HGB CONC 33 G/DL (32-36); MEAN CORPUSCULAR VOLUME 96 FL (80-99); MEAN PLATELET VOLUME 11.2 FL (7.4-10.4); MONOCYTES # (AUTO) 0.5 X 10^3 (0.0-1.0); MONOCYTES % (AUTO) 6 % (0-12); NEUTROPHILS # (AUTO) 4.9 X 10^3 (1.8-7.8); NEUTROPHILS % (AUTO) 56 % (42-75); PLATELET COUNT 270 10^3/uL (130-400); RED CELL DISTRIBUTION WIDTH 13.7 % (10.0-14.5)
[2019-05-08 11:52] LABS: ALANINE AMINOTRANSFERASE 5 U/L (0-55); ALBUMIN 4.2 GM/DL (3.2-4.5); ALKALINE PHOSPHATASE 74 U/L (40-136); BILIRUBIN,TOTAL 0.4 MG/DL (0.1-1.0); BUN/CREATININE RATIO 15; CALCIUM 9.6 MG/DL (8.5-10.1); CARBON DIOXIDE 21 MMOL/L (21-32); CHLORIDE 106 MMOL/L (98-107); CREATININE SERUM 0.73 MG/DL (0.60-1.30); GFR ESTIMATED > 60; GLUCOSE 96 MG/DL (70-105); SODIUM 141 MMOL/L (135-145); TOTAL PROTEIN 7.3 GM/DL (6.4-8.2)
== END ==
LOC: IHC 11:06
PROVIDERS: ATTEND Orthopaedic Surgery
DX: T81.31XA Disruption of external operation (surgical) wound, not elsewhere classified, initial encounter (principal); T84.69XA Infection and inflammatory reaction due to internal fixation device of other site, initial encounter; M86.462 Chronic osteomyelitis with draining sinus, left tibia and fibula
CPT/HCPCS: 36415; 80053; 85025

== ENCOUNTER → 2019-05-15 | Outpatient (CLI) | payer MEDICARE, MEDICAID ==
[2019-05-15 13:07] LABS: BASOPHILS % (AUTO) 1 % (0-10); EOSINOPHILS % (AUTO) 4 % (0-10); HEMATOCRIT 42 % (35-52); LYMPHOCYTES % (AUTO) 34 % (12-44); MEAN CORPUSCULAR HEMOGLOBIN 31 PG (25-34); MEAN CORPUSCULAR HGB CONC 33 G/DL (32-36); MEAN CORPUSCULAR VOLUME 94 FL (80-99); MEAN PLATELET VOLUME 11.9 FL (7.4-10.4); MONOCYTES % (AUTO) 8 % (0-12); NEUTROPHILS # (AUTO) 3.8 X 10^3 (1.8-7.8); NEUTROPHILS % (AUTO) 53 % (42-75); PLATELET COUNT 206 10^3/uL (130-400); RED CELL DISTRIBUTION WIDTH 13.5 % (10.0-14.5); WHITE BLOOD COUNT 7.1 10^3/uL (4.3-11.0)
[2019-05-15 13:08] LABS: EOSINOPHILS # (AUTO) 0.3 10^3/uL (0.0-0.3); LYMPHOCYTES # (AUTO) 2.4 X 10^3 (1.0-4.0); MONOCYTES # (AUTO) 0.6 X 10^3 (0.0-1.0)
[2019-05-15 16:47] LABS: BUN/CREATININE RATIO 16; CALCIUM 9.3 MG/DL (8.5-10.1); CARBON DIOXIDE 23 MMOL/L (21-32); CHLORIDE 109 MMOL/L (98-107); CREATININE SERUM 0.74 MG/DL (0.60-1.30); GFR ESTIMATED > 60; GLUCOSE 113 MG/DL (70-105); SODIUM 145 MMOL/L (135-145)
[2019-05-15 16:48] LABS: ALANINE AMINOTRANSFERASE 9 U/L (0-55); ALBUMIN 4.1 GM/DL (3.2-4.5); ALKALINE PHOSPHATASE 70 U/L (40-136); BILIRUBIN,TOTAL 0.2 MG/DL (0.1-1.0); TOTAL PROTEIN 7.2 GM/DL (6.4-8.2)
== END ==
LOC: LAB FS 11:35
PROVIDERS: ATTEND Orthopaedic Surgery
DX: T81.31XA Disruption of external operation (surgical) wound, not elsewhere classified, initial encounter (principal); T84.69XA Infection and inflammatory reaction due to internal fixation device of other site, initial encounter; M86.462 Chronic osteomyelitis with draining sinus, left tibia and fibula
CPT/HCPCS: 36415; 80053; 85025

== ENCOUNTER 2020-02-21 19:53 | Emergency (ER) | payer MEDICARE, MEDICAID ==
[2020-02-21] MEDS ORDERED: LIDOCAINE 1% INJ 20 ML 20 ML VIAL ONE (20:03)
[2020-02-21] MEDS ORDERED: LIDOCAINE 1% INJ 20 ML 20 ML VIAL INJ ONE (20:30)
[2020-02-21 20:43] VITALS: BP 159/90
--- NOTE | 2020-02-21 20:47 | ED Upper Extremity ---
General Chief Complaint: Laceration Stated Complaint: LEFT HAND LAC Nursing Triage Note: Pt presents with a left hand laceration from a broken bulb at home. Nursing Sepsis Screen: No Definite Risk Source: patient Exam Limitations: no limitations History of Present Illness Date Seen by Provider: Feb 21, 2020 Time Seen by Provider: 20:12 Initial Comments Here with report of laceration to the left hand proximal to the thumb and second finger on the dorsum. Occurred about 1/2-hour prior to arrival. Bleeding controlled. No other injuries. Tetanus up-to-date. Onset: just prior to arrival Severity: moderate Pain/Injury Location: left hand Method of Injury: incised Modifying Factors: Improves With Immobilization; Worse With Movement Allergies and Home Medications Allergies Coded Allergies: benzocaine (Unverified Allergy, Unknown, 02/03/19) meperidine (Verified Allergy, Unknown, Pt has received Fentanyl w/o issue, 02/13/19) Home Medications Doxycycline Hyclate 100 Mg Tablet, 100 MG PO BID Prescribed by: MAULIK MANZANARES on 04/03/19 0339 Oxycodone HCl/Acetaminophen 1 Each Tablet, 1 EACH PO Q4H PRN for PAIN-SEVERE Prescribed by: JAVIER STACK on 02/13/19 1211 Sulfamethoxazole/Trimethoprim 1 Each Tablet, 1 EACH PO BID Prescribed by: MAULIK MANZANARES on 04/03/19 0339 Patient Home Medication List Home Medication List Reviewed: Yes Review of Systems Constitutional: see HPI; No chills, No fever Respiratory: no symptoms reported Cardiovascular: no symptoms reported Skin: No change in color; lesions (3 cm laceration) Psychiatric/Neurological: No Symptoms Reported Past Zsjetxt-Peskla-Wpkbgg Hx Past Med/Social Hx: Reviewed Nursing Past Med/Soc Hx Patient Social History Alcohol Use: Denies Use Number of Drinks Today: AA Alcohol Beverage of Choice: Beer Recreational Drug Use: No Smoking Status: Former Smoker Type Used: Cigarettes 2nd Hand Smoke Exposure: Yes Recent Foreign Travel: No Contact w/Someone Who Travel: No Recent Infectious Disease Expo: No Recent Hopitalizations: Yes Physical Abuse: No Sexual Abuse: No Immunizations Up To Date Tetanus Booster (TDap): Less than 5yrs Date of Pneumonia Vaccine: Dec 18, 2012 Date of Influenza Vaccine: Dec 18, 2012 Seasonal Allergies Seasonal Allergies: No Past Medical History Surgeries: Yes (LEFT ANKLE SURGERY; RIGHT KNEE ACL SURGERY) Hysterectomy, Orthopedic Respiratory: No Currently Using CPAP: No Currently Using BIPAP: No Cardiac: No Neurological: Yes Headaches /Migraines Reproductive Disorders: Yes (SEVERE CERVICAL DYSPLASIA, HYSTERECTOMY) 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 oz. 61.368866or; 19.00 BMI Method:Stated General Appearance: WD/WN, no apparent distress Cardiovascular: regular rate, rhythm, no murmur Respiratory: lungs clear, normal breath sounds Hand: normal ROM, Left, laceration (3 cm to the dorsum of the hand proximal to the base of the first and second finger. Bleeding controlled.) Neurologic/Tendon: normal sensation, normal motor functions Neurologic/Psychiatric: alert, oriented x 3 Skin: normal color, warm/dry, other (Laceration as described above) Procedures/Interventions Wound Location: Upper Extremities Other Wound Location Left hand Wound Length (cm): 3 Wound's Depth, Shape: superficial, linear Wound Explored: contaminated Irrigated w/ Saline (ccs): 250 Betadine Prep?: Yes Anesthesia: 1% Lidocaine Volume Anesthetic (ccs): 5 Wound Debrided: minimal Suture: Ethlion Suture Size: 4-0, 6-0 Number of Sutures: 7 Layer Closure?: 1 Number Deep Layer Sutures: 0 Sterile Dressing Applied?: Yes Progress Cleaned with Betasept and flushed with saline. No obvious foreign body. Wound closed with simple interrupted sutures. Covered with antibiotic ointment and sterile dressing. Tolerated procedure well with no complication. Progress/Results/Core Measures Results/Orders My Orders Orders - ITZEL ROBLES MD Lidocaine 1% Inj 20 Ml (Xylocaine 1% Inj (02/21/20 20:03) Lidocaine 1% Inj 20 Ml (Xylocaine 1% Inj (02/21/20 20:30) Medications Given in ED Current Medications Medications Dose Ordered Sig/Justo Route Start Time Stop Time Status Last Admin Dose Admin Lidocaine HCl 20 ml ONCE ONCE INJ 02/21/20 20:30 02/21/20 20:31 DC 02/21/20 20:35 20 ML Vital Signs/I&O 02/21/20 20:06 Temp 36.2 Pulse 82 Resp 16 B/P (MAP) 159/90 (113) Pulse Ox 100 O2 Delivery Room Air 2 Blood Pressure Mean: 113 Progress Progress Note : Progress Note Seen and evaluated. Wound cleaned, anesthetized and closed with simple interrupted sutures. Covered with dressing. Discharged home with return precautions. Patient verbalized understanding of instructions and agreement with plan. Wound was otherwise clean and cut with a broken bulb. No indication for antibiotics currently but patient informed for return precautions regarding infection. Departure Impression Primary Impression: Laceration of left hand Qualified Codes: S61.412A - Laceration without foreign body of left hand, initial encounter Disposition: HOME, SELF-CARE Condition: Improved Departure-Patient Inst. Decision time for Depature: 20:48 Referrals: ANNIE ALVARENGA MD (PCP/Family) Primary Care Physician Patient Instructions: Laceration Repair With Stitches (DC) Add. Discharge Instructions: All discharge instructions reviewed with patient and/or family. Voiced understanding. Sutures out in 10 to 14 days. You may return to the emergency department for suture removal. You may keep this first dressing in place for the next 1 to 2 days. Afterwards you may clean the wound once or twice daily with gentle soap and water. It is okay to shower. Change dressing if it becomes soiled. Use antibiotic ointment over wound and a Band-Aid twice daily for the first 5 to 7 days and then you may use dry dressing thereafter. You may take Tylenol or ibuprofen as needed for pain per package directions. Return for worse pain, red streaks up the hand or arm, foul-smelling drainage, fever or other concerns as needed. ITZEL ROBLES MD Feb 21, 2020 20:47
[2020-02-22] MEDS ORDERED: CEPH500T PO ×3 (18:37→18:41)
== END 2020-02-21 20:53 | disposition home or self-care (01) ==
LOC: EDUNIT# 19:53 → ER FS 19:55
DX: S61.012A Laceration without foreign body of left thumb without damage to nail, initial encounter (principal); S61.211A Laceration without foreign body of left index finger without damage to nail, initial encounter; Z87.891 Personal history of nicotine dependence; Z88.5 Allergy status to narcotic agent; Z88.8 Allergy status to other drugs, medicaments and biological substances; X58.XXXA Exposure to other specified factors, initial encounter
CPT/HCPCS: 12002

== ENCOUNTER 2020-02-22 17:43 | Emergency (ER) | payer MEDICARE, MEDICAID ==
[~2020-02-22] VITALS: Ht 180 cm; Wt 75.0 kg
[2020-02-22] MEDS ORDERED: LIDOCAINE 1% INJ 20 ML 20 ML VIAL ONE (18:14)
[2020-02-22] MEDS ORDERED: L.E.T. SOLUTION 3 ML SYR ONE (18:14)
--- NOTE | 2020-02-22 18:15 | ED Upper Extremity ---
General Chief Complaint: Laceration Stated Complaint: LT HAND LACERTION Nursing Triage Note: LEFT HAND LACERATION ON A LIGHT BULB LAST PM. CAME TO ER AND WAS SUTURED AND ALL THE SUTURES CAME OUT TONIGHT. Nursing Sepsis Screen: No Definite Risk Source: patient Exam Limitations: no limitations History of Present Illness Date Seen by Provider: Feb 22, 2020 Time Seen by Provider: 18:13 Healthy 34-year-old female presenting to the ER with a complaint of stitches falling out of her hand wound. Patient yesterday around 7 PM cut the dorsal aspect of her left hand when changing a light bulb. She presented to the emergency department where the wound was irrigated and closed. The wound remained closed throughout the day, but she noted on 5 PM today that the wound had opened back up as all the stitches except for one had fallen out. She denies any trauma to the hand. Allergies and Home Medications Allergies Coded Allergies: benzocaine (Unverified Allergy, Unknown, 02/03/19) meperidine (Verified Allergy, Unknown, Pt has received Fentanyl w/o issue, 02/13/19) Home Medications Cephalexin 500 Mg Tablet, 500 MG PO QID Prescribed by: SAIRA PIZARRO on 02/22/20 1841 Doxycycline Hyclate 100 Mg Tablet, 100 MG PO BID Prescribed by: MAULIK MANZANARES on 04/03/19 0339 Oxycodone HCl/Acetaminophen 1 Each Tablet, 1 EACH PO Q4H PRN for PAIN-SEVERE Prescribed by: JAVIER STACK on 02/13/19 1211 Sulfamethoxazole/Trimethoprim 1 Each Tablet, 1 EACH PO BID Prescribed by: MAULIK MANZANARES on 04/03/19 0339 Patient Home Medication List Home Medication List Reviewed: Yes Review of Systems Constitutional: no symptoms reported Skin: other (Laceration of the left hand.) All Other Systems Reviewed Negative Unless Noted: Yes Past Codeauu-Ignvpu-Fdffzu Hx Patient Social History Alcohol Use: Occasionally Uses Number of Drinks Today: AA Alcohol Beverage of Choice: Beer Recreational Drug Use: No Smoking Status: Current Someday Smoker Type Used: Cigarettes 2nd Hand Smoke Exposure: Yes Recent Foreign Travel: No Contact w/Someone Who Travel: No Recent Infectious Disease Expo: No Recent Hopitalizations: Yes Physical Abuse: No Sexual Abuse: No Immunizations Up To Date Tetanus Booster (TDap): Less than 5yrs Date of Pneumonia Vaccine: Dec 18, 2012 Date of Influenza Vaccine: Dec 18, 2012 Seasonal Allergies Seasonal Allergies: No Past Medical History Surgeries: Yes (LEFT ANKLE SURGERY; RIGHT KNEE ACL SURGERY) Hysterectomy, Orthopedic Respiratory: No Currently Using CPAP: No Currently Using BIPAP: No Cardiac: No Neurological: Yes Headaches /Migraines Reproductive Disorders: Yes (SEVERE CERVICAL DYSPLASIA, HYSTERECTOMY) 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 oz. [id number]; 23.00 BMI Method:Stated General Appearance: WD/WN, no apparent distress Neck: supple Respiratory: no respiratory distress Gastrointestinal: No distended Shoulder: normal inspection Elbow/Forearm: normal inspection Wrist: Yes normal inspection Hand: laceration (Patient has a 3 cm linear laceration with exposed subcutaneous tissue over the dorsal aspect of her left hand. No redness, drainage, or other evidence of infection near the wound. No foreign bodies appreciated. 1 single interrupted sutures remaining from previous closure.) Skin: other Procedures/Interventions Wound Location: Upper Extremities Other Wound Location 3 cm laceration to the dorsum of the first inner webspace of the left hand. 1 simple interrupted suture was remaining from previous closure. Wound's Depth, Shape: sub Q Wound Explored: no foreign body removed Betadine Prep?: No Wound Debrided: minimal Suture: Ethlion Suture Size: 4-0, 6-0 Number of Sutures: 5 Layer Closure?: 1 Progress Patient had a 3 cm laceration with subcutaneous tissue exposed over the dorsum of the left hand. 1 simple interrupted suture was already in place from previous closure. There is no evidence of infection. The wound was irrigated with sterile normal saline and dressed with sterile dressing. Five 4-0 mon ofilament sutures were placed in simple interrupted fashion with good wound edge approximation. Hemostasis was obtained. Progress/Results/Core Measures Results/Orders My Orders Orders - SAIRA PIZARRO MD Lidocaine 1% Inj 20 Ml (Xylocaine 1% Inj (02/22/20 18:14) Let Solution (Let Solution) (02/22/20 18:14) Lidocaine 1% Inj 20 Ml (Xylocaine 1% Inj (02/22/20 18:30) Let Solution (Let Solution) (02/22/20 18:30) Cephalexin Capsule (Keflex Capsule) (02/22/20 19:15) Medications Given in ED Current Medications Medications Dose Ordered Sig/Justo Route Start Time Stop Time Status Last Admin Dose Admin Cephalexin HCl 500 mg ONCE ONCE PO 02/22/20 19:15 02/22/20 19:16 DC 02/22/20 19:32 500 MG Lidocaine HCl 5 ml ONCE ONCE INJ 02/22/20 18:30 02/22/20 18:31 DC 02/22/20 18:20 5 ML Tetracaine/ Epinephrine/ Lidocaine 3 ml ONCE ONCE TOP 02/22/20 18:30 02/22/20 18:31 DC 02/22/20 18:20 3 ML Vital Signs/I&O 02/22/20 02/22/20 17:55 19:34 Temp 36.5 Pulse 91 88 Resp 18 18 B/P (MAP) 150/93 (112) 146/89 (112) Pulse Ox 100 100 O2 Delivery Room Air Blood Pressure Mean: 112 Progress Progress Note : Progress Note Patient's hand laceration sutures appear to have come undone. Her wound was open. No obvious evidence of infection on exam. I discussed primary versus delayed closure of the wound with the patient regarding the initial time of her injury. Her wound was initially closed within 1 hour of the injury initially happening and sounds to have been closed until around 5 PM this evening. No obvious evidence of infection on examination. I discussed the risks of increased risk of infection with the patient who was understanding of these risks and was agreeable with primary closure with concerns for potential cosmetic defect given the location of exposure on her hand.. She will be given a 5-day course of Keflex and strict return precautions and to follow-up with her primary care provider in 3 days for a wound check. Let gel was applied and the wound was closed without difficulty after significant irrigation. She was instructed to have the sutures removed in 7 to 10 days.First dose of 500 mg Keflex was given prior to her discharging. Departure Impression Primary Impression: Laceration of left hand Qualified Codes: S61.412D - Laceration without foreign body of left hand, subsequent encounter Disposition: 01 HOME, SELF-CARE Condition: Stable Departure-Patient Inst. Decision time for Depature: 19:31 Referrals: ANNIE ALVARENGA MD (PCP/Family) Primary Care Physician Patient Instructions: Laceration Repair With Stitches (DC) Add. Discharge Instructions: You were seen in the emergency department for a hand laceration. The stitches were replaced in the emergency department. Your wound is at increased risk for infection since we did close it again. You need to take the antibiotics as prescribed for the next 5 days. You also need to follow-up with your primary care provider on Monday or Monday for a wound check. Please watch for signs of redness, drainage, or pain surrounding the wound. This could indicate an infection. The sutures need to be removed in 7-10 days. Please avoid submerging your hand. It is okay to wash your hands with soap and water. You can apply topical antibiotic ointment. All discharge instructions reviewed with patient and/or family. Voiced understanding. Scripts Cephalexin (Cephalexin) 500 Mg Tablet 500 MG PO QID, #20 TAB 0 Refills Prov: SAIRA PIZARRO MD 02/22/20 SAIRA PIZARRO MD Feb 22, 2020 18:15
[2020-02-22] MEDS ORDERED: LIDOCAINE 1% INJ 20 ML 20 ML VIAL INJ ONE (18:30)
[2020-02-22] MEDS ORDERED: L.E.T. SOLUTION 3 ML SYR TOP ONE (18:30)
[2020-02-22] MEDS ORDERED: CEPH500T PO ×3 (18:37→18:41)
[2020-02-22] MEDS ORDERED: CEPHALEXIN 250 MG (KEFLEX) CAP PO ONE (19:15)
[2020-02-22 19:34] VITALS: BP 146/89
== END 2020-02-22 19:36 | disposition home or self-care (01) ==
LOC: EDUNIT# 17:43 → ER FS 17:45
DX: S61.412A Laceration without foreign body of left hand, initial encounter (principal); F17.210 Nicotine dependence, cigarettes, uncomplicated; Z88.5 Allergy status to narcotic agent; Z88.8 Allergy status to other drugs, medicaments and biological substances; W19.XXXA Unspecified fall, initial encounter
CPT/HCPCS: 12002

== ENCOUNTER 2020-08-20 21:01 | Emergency (ER) | payer MEDICARE, MEDICAID ==
[~2020-08-20 21:01] MED LIST changes: +CEPH500T PO; -OXYC-471 PO; +OXYC1TAB11 PO
[2020-08-20] MEDS ORDERED: LIDOCAINE 1% INJ 20 ML 20 ML VIAL INJ ONE (21:15)
--- NOTE | 2020-08-20 21:24 | ED Lower Extremity ---
General Chief Complaint: Laceration Stated Complaint: LEFT LEG LAC Source: patient, old records History of Present Illness Date Seen by Provider: Aug 20, 2020 Time Seen by Provider: 21:06 Initial Comments 35-year-old female presenting with laceration to her left leg. She states [place] and did not see some [place]am[place] wire. She cut her leg on the kamala wire and tried to clean it with alcohol. She then tried to close it with superglue but was unable to get it to stay closed. She last had a tetanus shot in 2019. She denies other medical problems. She has no numbness or tingling around the area. There is some pain at the site of the cut. 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) Pain/Injury Location: left leg Method of Injury: incised (cut on [place] wire in [place] when she was walking through it) Modifying Factors: Worse With Movement Allergies and Home Medications Allergies Coded Allergies: benzocaine (Unverified Allergy, Unknown, 02/03/19) meperidine (Verified Allergy, Unknown, Pt has received Fentanyl w/o issue, 02/13/19) Home Medications Cephalexin 500 Mg Tablet, 500 MG PO QID Prescribed by: SAIRA PIZARRO on 02/22/201999 Cephalexin 500 Mg Tablet, 500 MG PO QID Prescribed by: SAIRA PIZARRO on 02/22/201999 Cephalexin 500 Mg Tablet, 500 MG PO QID Prescribed by: SAIRA PIZARRO on 02/22/20 184 Doxycycline Hyclate 100 Mg Tablet, 100 MG PO BID Prescribed by: MAULIK MANZANARES on 04/03/19 0339 Oxycodone HCl/Acetaminophen 1 Each Tablet, 1 EACH PO Q4H PRN for PAIN-SEVERE Prescribed by: JAVIER STACK on 02/13/19 1211 Sulfamethoxazole/Trimethoprim 1 Each Tablet, 1 EACH PO BID Prescribed by: MAULIK MANZANARES on 04/03/19 0339 Patient Home Medication List Home Medication List Reviewed: Yes Review of Systems Constitutional: no symptoms reported EENTM: no symptoms reported Respiratory: no symptoms reported Cardiovascular: no symptoms reported Gastrointestinal: no symptoms reported Genitourinary: no symptoms reported Musculoskeletal: other (mild pain around laceration) Skin: see HPI Psychiatric/Neurological: Denies Numbness, Denies Paresthesia Past Ebhrbgo-Wwfkaw-Iqcvwe Hx Past Med/Social Hx: Reviewed Nursing Past Med/Soc Hx Patient Social History Alcohol Beverage of Choice: Beer Type Used: Cigarettes 2nd Hand Smoke Exposure: Yes Recent Hopitalizations: Yes Immunizations Up To Date Tetanus Booster (TDap): Less than 5yrs Date of Pneumonia Vaccine: Dec 18, 2012 Date of Influenza Vaccine: Dec 18, 2012 Seasonal Allergies Seasonal Allergies: No Past Medical History Surgeries: Yes (LEFT ANKLE SURGERY; RIGHT KNEE ACL SURGERY) Hysterectomy, Orthopedic Respiratory: No Currently Using CPAP: No Currently Using BIPAP: No Cardiac: No Neurological: Yes Headaches /Migraines Reproductive Disorders: Yes (SEVERE CERVICAL DYSPLASIA, HYSTERECTOMY) 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 oz. 61.067214zg; 23.00 BMI Method:Stated General Appearance: WD/WN, no apparent distress Cardiovascular: normal peripheral pulses Legs: left leg pain (mild to left lateral leg where she has laceration) Neurologic/Tendon: normal sensation, normal motor functions, normal tendon functions Neurologic/Psychiatric: clearance rep II-XII nml as tested, no motor/sensory deficits, alert, oriented x 3 Skin: normal color, warm/dry, other (laceration to left leg on lateral lower aspect) Procedures/Interventions Wound Location: Lower Extremities Wound Length (cm): 5.3 Wound's Depth, Shape: sub Q Wound Explored: clean Anesthesia: 1% Lidocaine Volume Anesthetic (ccs): 8 Suture: Ethlion Suture Size: 4-0 Number of Sutures: 9 Layer Closure?: 1 Sterile Dressing Applied?: Yes Progress After obtaining verbal informed consent the wound was cleaned with antibiotic ointment to help remove remaining superglue. Then the wound was anesthetized with 1% plain lidocaine using 8 mL of lidocaine. The wound was then further scrubbed with sterile water and chlorhexidine scrub soap. No further superglue was palpated within the wound or on the wound edges. The wound was then closed with 4-0 Ethilon using a total of 9 simple interrupted stitches. She tolerated procedure well without any immediate complication. Counseled on follow-up and return precautions. Placed a sterile dressing with antibiotic ointment and a compression dressing with an Gaetano bandage to help with bruising and swelling. Progress/Results/Core Measures Results/Orders My Orders Orders - ERLINDA LYN MD Lidocaine 1% Inj 20 Ml (Xylocaine 1% Inj (08/20/20 21:15) Suture Set At Bedside (08/20/20 21:18) Wound Dressing-Ed (08/20/20 21:18) Medications Given in ED Current Medications Medications Dose Ordered Sig/Justo Route Start Time Stop Time Status Last Admin Dose Admin Lidocaine HCl 20 ml ONCE ONCE INJ 08/20/20 21:15 08/20/20 21:16 DC 08/20/20 21:33 20 ML Vital Signs/I&O 08/20/20 08/20/20 21:05 22:31 Temp 36.6 36.6 Pulse 85 85 Resp 16 16 B/P (MAP) 143/88 (106) 143/88 (106) Pulse Ox 98 98 O2 Delivery Room Air Room Air Progress Progress Note : Progress Note Tetanus is up-to-date. Will inject numbing medicine occasion and clean with antibiotic ointment and try to get the superglue off prior to closing the wound. Will anticipate using 4-0 Ethilon to approximate the wound edges. Have the stitches removed around 14 days. Monitor for infection. Departure Impression Primary Impression: Laceration of left lower leg without complication Qualified Codes: S81.812A - Laceration without foreign body, left lower leg, initial encounter Disposition: HOME, SELF-CARE Condition: Stable Departure-Patient Inst. Decision time for Depature: 22:34 Referrals: ANNIE ALVARENGA MD (PCP/Family) Primary Care Physician Patient Instructions: Laceration Repair With Stitches ED Add. Discharge Instructions: Keep dressing in place with compression bandage for first 24 hours. Then you may remove it and wash with soap and water. Apply antibiotic ointment and dressing with gaetano bandage for compression to help limit swelling and bleeding. After the firs 3-4 days you would not have to keep using the compression bandage. Watch for signs of infection and be seen sooner if you see redness streaking up the leg, pus draining from the wound or fever over 101 F. Otherwise have the stitches removed in about 2 weeks. All discharge instructions reviewed with patient and/or family. Voiced understanding. ERLINDA LYN MD Aug 20, 2020 21:24
[2020-08-20 22:31] VITALS: BP 143/88
== END 2020-08-20 22:38 | disposition home or self-care (01) ==
LOC: EDUNIT# 21:01 → ER FS 21:02
DX: S81.812A Laceration without foreign body, left lower leg, initial encounter (principal); Z77.22 Contact with and (suspected) exposure to environmental tobacco smoke (acute) (chronic); Z88.5 Allergy status to narcotic agent; Z88.8 Allergy status to other drugs, medicaments and biological substances; W26.8XXA Contact with other sharp object(s), not elsewhere classified, initial encounter
CPT/HCPCS: 12002

== ENCOUNTER 2021-08-28 09:21 | Emergency (ER) | payer OTHER, MEDICARE, MEDICAID ==
[~2021-08-28] VITALS: Ht 180.3 cm; Wt 66.4 kg
[~2021-08-28 09:21] MED LIST changes: -SULF1TAB35 PO; +SULF1TAB38 PO
[2021-08-28] MEDS ORDERED: KETOROLAC 60 MG/2 ML VIAL IM STA (09:42)
[2021-08-28 09:54] LABS: BILIRUBIN,URINE NEGATIVE (NEGATIVE); CLARITY,URINE CLEAR; COLOR,URINE YELLOW; GLUCOSE, URINE (UA) NEGATIVE (NEGATIVE); KETONES,URINE NEGATIVE (NEGATIVE); LEUKOCYTE ESTERASE ,URINE TRACE (NEGATIVE); NITRITE,URINE NEGATIVE (NEGATIVE); PROTEIN,URINE NEGATIVE (NEGATIVE)
[2021-08-28 10:05] LABS: BACTERIA,URINE LARGE /HPF
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
[2021-08-28] MEDS ORDERED: SULF1TAB38 PO (10:39)
[2021-08-28] MEDS ORDERED: IBUP-1780 PO (10:39)
[2021-08-28] MEDS ORDERED: CYCL10TA25 PO (10:39)
[2021-08-28 10:46] VITALS: BP 128/92
== END 2021-08-28 10:46 | disposition home or self-care (01) ==
LOC: EDUNIT# 09:21 → ER FS 09:25
DX: S16.1XXA Strain of muscle, fascia and tendon at neck level, initial encounter (principal); S29.019A Strain of muscle and tendon of unspecified wall of thorax, initial encounter; R51.9 Headache, unspecified; N30.00 Acute cystitis without hematuria; V43.63XA Car passenger injured in collision with pick-up truck in traffic accident, initial encounter; Y92.410 Unspecified street and highway as the place of occurrence of the external cause
CPT/HCPCS: 70450; 72125; 72128; 81000; 87077; 87088; 87186